=== PATIENT | male | born 1985 | race Hispanic/Latino ===

== ENCOUNTER 2025-03-05 12:44 | Emergency (ER) | payer OTHER ==
[~2025-03-05] VITALS: Ht 175.3 cm; Wt 76.7 kg
--- NOTE | 2025-03-05 13:07 | ERN ---
ED Note History of Present Illness Stated Complaint: SOB Time Seen by MD: 12:47 Dictation: PATIENT IS A 39-YEAR-OLD MALE HERE IN CUSTODY AT A LOCAL GROUP HOME WITH GROUP HOME G UARDS WITH COMPLAINTS OF COUGH WITH CLEAR PHLEGM FOR THE LAST 3-4 DAYS. NO FEVER NO CHILLS NO NAUSEA VOMITING. STATES HE HAS A HISTORY OF ASTHMA HOWEVER THE PUMP IS NOT BEEN HELPING HIM RECENTLY. WEEKS WITH COMPLETE SENTENCES NO LOSS OF TASTE OR SMELL Allergies: Coded Allergies: No Known Allergies (Unverified Allergy, Unknown, 03/05/25) Home Meds Active Scripts Albuterol Sulfate (Albuterol Sulfate) 2.5 Mg/0.5 Ml Vial.neb, 2.5 MG IH Q6H for wheezing/sob, #20 INH 0 Refills Prov:LING JUAN NP 03/05/25 Methylprednisolone (Medrol) 4 Mg Tab.ds.pk, 1 TAB PO AD for 6 Days, #21 TAB 0 Refills 6 on day 1 then reduce by one tablet daily until gone Prov:LING JUAN NP 03/05/25 Amoxicillin/Potassium Clav (Amox Tr-K Clv 875-125 mg Tab) 875 Mg-125 Mg Tablet, 1 EACH PO BID for 7 Days, #14 TAB 0 Refills Prov:LING JUAN NP 03/05/25 Past Medical History RN Note Reviewed/Agreed w/PFSH: Yes Review of System Dictation BOW CONSTITUTIONAL: NEGATIVE EXCEPT FOR HPI HEAD/FACE: NEGATIVE EXCEPT FOR HPI EENT: NEGATIVE EXCEPT FOR HPI RESPIRATORY: NEGATIVE EXCEPT FOR HPI PRODUCTIVE COUGH WITH PHLEGM/SOB GASTROINTESTINAL/ABDOMINAL: NEGATIVE EXCEPT FOR HPI GENITOURINARY: NEGATIVE EXCEPT FOR HPI MUSCULOSKELETAL: NEGATIVE EXCEPT FOR HPI INTEGUMENTARY: NEGATIVE EXCEPT FOR HPI NEUROLOGICAL/PSYCH: NEGATIVE EXCEPT FOR HPI HEMATOLOGIC/LYMPHATIC: NEGATIVE EXCEPT FOR HPI ALL SYSTEMS NEGATIVE, EXCEPT NOTED ABOVE. 13 POINT REVIEW OF SYSTEMS ASSESSED AND ALL NEGATIVE EXCEPT FOR ABOVE. Initial Vital Sign VS Vital Signs Date Time Temp Pulse Resp B/P (MAP) Pulse Ox O2 Delivery O2 Flow Rate FiO2 03/05/25 13:22 98.4 68 16 132/82 100 Room Air 0 03/05/25 13:40 21 Physical Exam Dictation VITAL SIGNS REVIEWED GENERAL APPEARANCE: ALERT, ORIENTED X 3, MILD ACUTE DISTRESS, WELL DEVELOPED, NOURISHED. HEAD AND FACE: NON-TRAUMATIC. EYES: PERRL, PINK CONJUNCTIVAS, EYELID NO TRAUMA, ANTERIOR CHAMBER WITH ARCUS SENILIS. EARS: PINNAS INTACT AND NO SIGNS OF TRAUMA OR ERYTHEMA EAR CANALS CLEAR AND NO DISCHARGE TM NO ERYTHEMA NOSE: NO DISCHARGE, NO BLEEDING. OROPHARYNX: MOUTH NORMAL, TONGUE PINK, PHARYNX CLEAR,NO ERYTHEMA, TONSILS NO EXUDATES, NO ABSCESSES NOTED, MUCOUS MEMBRANE MOIST NECK: SUPPLE, NON-TENDER, NO THYROMEGALY, NO MASSES, NO JVD, NO BRUITS BREAST:DEFERRED CHEST:NO TENDERNESS, NO CREPITUS, NO PARADOXICAL MOVEMENT, NO RETRACTIONS LUNGS:CLEAR, WELL-VENTILATED, SYMMETRIC, NO RALES, NO WHEEZING, NO RHONCHI, NO STRIDOR, GOOD BREATH SOUNDS BILATERALLY INTRACTABLE COUGH NOTED HEART: REGULAR RATE, REGULAR RHYTHM, NO MURMUR, NO GALLOPS VASCULAR: NO PERIPHERAL EDEMA, ABDOMEN: SOFT, POSITIVE BOWEL SOUNDS, NONDISTENDED, NO GUARDING, NONTENDER, NO REBOUND, NO MASSES NO HEPATOMEGALY, NO SPLENOMEGALY, NO CRUZ'S SIGN, NO HERNIAS. RECTAL: DEFERRED GENITAL: DEFERRED NEUROLOGICAL: NORMAL SPEECH, MOTOR FUNCTION INTACT, SENSORY FUNCTION INTACT MUSCULOSKELETAL: NECK NONTENDER, FULL RANGE OF MOTION, BACK NONTENDER, FULL RANGE OF MOTION, EXTREMITIES: NONTENDER, FULL RANGE OF MOTION SKIN: COLOR PINK, DRY, NO TURGOR, NO RASH, NO LACERATIONS, NO ABRASIONS, NO CONTUSIONS. LYMPHATIC: DEFERRED Results (Laboratory/Radiology) Laboratory/Radiology Laboratory Tests Test 03/05/25 13:58 SARS-CoV-2 Antigen (Rapid) PRESUMPTIVE NEGATIVE Group A Streptococcus Rapid positive (NEGATIVE) *A PROCEDURE: CXR1VW - CHEST 1VW Exam Type: CHEST 1VW Clinical Information: SOB/COUGH Comparison: None Findings: The lungs are clear of infiltrates. The heart is normal in size. The bony and soft tissue structures of the chest are unremarkable. Impression: Clear lungs. Labs Reviewed?: Yes ED Course ED Course Orders Procedure Category Date Status Time Covid19 (Sars Antigen LAB 03/05/25 Complete Rapid) 13:03 Rapid (Group A Strep) LAB 03/05/25 Complete 13:03 Chest 1vw RAD 03/05/25 Resulted 13:03 Albuterol 0.083% PHA 03/05/25 Complete 2.5mg/3ml (Proventil 13:30 Dexamethasone 4mg/Ml PHA 03/05/25 Complete 1ml Vial (Dexametha 13:30 Amox/Clav 875/125mg PHA 03/05/25 Complete Tab (Augmentin 875-1 16:30 Current Medications Medications (Trade) Dose Ordered Sig/Maged Route PRN Reason Start Time Stop Time Status Last Admin Dose Admin Albuterol Sulfate (Proventil 0.083% 2.5mg/3ml) 5 mg ONCE ONCE IH 03/05/25 13:30 03/05/25 13:31 DC 03/05/25 13:50 Amoxicillin/ Clavulanate Potassium (Augmentin 875-125 Tablet) 1 each ONCE ONCE PO 03/05/25 16:30 03/05/25 16:31 DC 03/05/25 16:55 Dexamethasone Sodium Phosphate (dexaMETHasone 4MG/ML 1ML VIAL) 8 mg ONCE ONCE IM 03/05/25 13:30 03/05/25 13:31 DC 03/05/25 13:50 Vital Signs Date Time Temp Pulse Resp B/P (MAP) Pulse Ox O2 Delivery O2 Flow Rate FiO2 03/05/25 16:48 98.4 70 16 118/68 98 Room Air* 0 21 03/05/25 13:54 65 18 03/05/25 13:40 98.4 68 16 132/82 98 Room Air* 0 21 03/05/25 13:22 98.4 68 16 132/82 100 Room Air 0 1620/PATIENT WILL BE TREATED FOR ACUTE STREPTOCOCCAL TONSILLITIS WITH THE AUGMENTIN. IN ADDITION HE WAS GIVEN ALBUTEROL AND DECADRON STEROID. DISCHARGED BACK TO GROUP HOME WITH PRESCRIPTION FOR AUGMENTIN [address]. FOR SEVEN DAYS MEDROL DOSEPAK AND TO CONTINUE ALBUTEROL TREATMENTS. Medical Decision Making MDM MEDICAL DISCHARGE MAKING BASED ON CHEST X-RAY SWABS FOR COVID AND STREP. ALSO PATIENT GOT ALBUTEROL AND DECADRON 8 MG FOR MILD BRONCHOSPASM DISCHARGED HOME WITH MEDROL DOSEPAK/AUGMENTIN TOLD CONTINUE ALBUTEROL AT THE GROUP HOME AND FOLLOW UP AT THE GROUP HOME DX & DISP Disposition: Discharge Departure Impression: Primary Impression: Acute streptococcal tonsillitis Additional Impression: Viral URI with cough Condition: Stable Scripts Albuterol Sulfate (Albuterol Sulfate) 2.5 Mg/0.5 Ml Vial.neb 2.5 MG IH Q6H for wheezing/sob, #20 INH 0 Refills Prov: LING JUAN NP 03/05/25 Methylprednisolone (Medrol) 4 Mg Tab.ds.pk 1 TAB PO AD for 6 Days, #21 TAB 0 Refills 6 on day 1 then reduce by one tablet daily until gone Prov: LING JUAN NP 03/05/25 Amoxicillin/Potassium Clav (Amox Tr-K Clv 875-125 mg Tab) 875 Mg-125 Mg Tablet 1 EACH PO BID for 7 Days, #14 TAB 0 Refills Prov: LING JUAN NP 03/05/25 Additional Instructions: FOLLOW-UP WITH PRIMARY CARE PROVIDER IN 1 TO 2 DAYS. TAKE MEDICATIONS DIRECTED HERE IN THE EMERGENCY ROOM. OKAY TO CONTINUE HOME MEDICATIONS UNLESS OTHERWISE DISCUSSED DURING YOUR VISIT IN THE EMERGENCY ROOM TODAY. RETURN TO YOUR NEAREST EMERGENCY ROOM IF SYMPTOMS WORSEN OR IF THERE IS NO IMPROVEMENT. CALL 911 IF YOU NEED IMMEDIATE ASSISTANCE. TAKE TYLENOL OR MOTRIN [id number] NEEDED AND IF NO CONTRAINDICATIONS ARE PRESENT. INCREASE ORAL HYDRATION. A WOUND CULTURE OR URINE CULTURE WAS ORDERED HERE IN THE EMERGENCY ROOM DEPARTMENT PLEASE FOLLOW-UP WITH PRIMARY CARE PROVIDER AND ADVISE THEM TO GET REPEAT PORTS FROM OUR FACILITY. IF YOU HAD ANY RUIZ WRAP/SPLINTS THAT WERE APPLIED HERE, PLEASE DO NOT REMOVE THEM UNTIL YOU SEE YOUR PRIMARY CARE OR SPECIALTY. TAKE ANTIBIOTICS DIRECTED UNTIL GONE. TAKE MEDROL DOSEPAK DIRECTED UNTIL GONE. ALBUTEROL INHALER EVERY 6 HOURS FOR THE NEXT TWO DAYS. FOLLOW UP WITH YOUR PRIMARY CARE DOCTOR. MEDICALLY CLEARED FOR INCARCERATION AND TRAVEL. Referrals: SELF,REFERRAL (PCP) Time of Disposition: 16:25 I have reviewed the case, and I agree with, Diagnosis and Plan I performed a substantive portion of the visit. I have reviewed and personally made and approve the management plan that is documented in the notes by myself with JOSELUIS/resident. I acknowledged full responsibility for the patient's management plan. LING JUAN NP March 05, 2025 13:07 DESIREE CERON DO March 05, 2025 17:47
[2025-03-05] MEDS: dexaMETHasone SOD PHOSPHATE 4 MG/ML 1ML VIAL IM ONE (13:50)
[2025-03-05] MEDS: ALBUTEROL 0.083% 2.5 MG/3 ML INH IH ONE (13:50)
--- NOTE | 2025-03-05 13:50 | HMCIMG ---
Exam Type: CHEST 1VW Clinical Information: SOB/COUGH Comparison: None Findings: The lungs are clear of infiltrates. The heart is normal in size. The bony and soft tissue structures of the chest are unremarkable. Impression: Clear lungs.
[2025-03-05 13:54] VITALS: PULSE 65; RESP 18
[2025-03-05 15:51] LABS: RAPID GROUP A STREP positive (NEGATIVE)
[2025-03-05 16:03] LABS: COVID19 (SARS ANTIGEN RAPID) PRESUMPTIVE NEGATIVE (NEGATIVE)
[2025-03-05] MEDS ORDERED: AMOX1TAB16 PO (16:26)
[2025-03-05] MEDS ORDERED: METH4TAB3 PO (16:26)
[2025-03-05] MEDS ORDERED: AUD IH (16:26)
[2025-03-05 16:48] VITALS: BP 118/68; PULSE 70; RESP 16; TEMP 98.4; O2SAT 98
[2025-03-05] MEDS: AMOX/CLAV 875/125MG TAB PO ONE (16:55)
== END 2025-03-05 17:14 ==
LOC: EEVIPCON 12:44 → EDH 12:44
DX: J03.00 Acute streptococcal tonsillitis, unspecified (principal); R05.9 Cough, unspecified; B97.89 Other viral agents as the cause of diseases classified elsewhere; Z20.822 Contact with and (suspected) exposure to COVID-19
CPT/HCPCS: 99284; 71045; 87426; 87880; 96372; 94640; J1100